=== PATIENT | female | born 1940 | race Caucasian/White ===

== ENCOUNTER → 2016-04-26 | Outpatient (CLI) | payer MEDICARE ==
--- NOTE | 2016-04-26 14:09 | MR ---
EXAMINATION TYPE: MR angio head wo con DATE OF EXAM: 04/26/2016 10:01 AM COMPARISON: NONE HISTORY: TIA TECHNIQUE: Time of flight images focusing on the [place] of [place] were performed without contrast. FINDINGS: Vertebrobasilar system is patent. Vertebral arteries are codominant. Internal carotid arter ies are patent. There is no evident aneurysm. No vascular malformation. No significant vasculitic kvng nge. No filling defect to suggest embolism. IMPRESSION: Unremarkable MRA brain.
== END | disposition home or self-care (01) ==
LOC: RADMRIMAIN 09:35
PROVIDERS: ATTEND Family Medicine
DX: G45.9 Transient cerebral ischemic attack, unspecified (principal)
CPT/HCPCS: 70544

== ENCOUNTER → 2016-11-01 | Outpatient (CLI) | payer MEDICARE ==
--- NOTE | 2016-11-05 08:34 | ECHOF ---
Referral Reason:Chest Pain R07.9, Shortness of Breath R06.02 MEASUREMENTS -------- HEIGHT: 172.7 cm WEIGHT: 74.8 kg BP: 130/73 IVSd: 1.0 cm (0.6 - 1.1) LVIDd: 3.5 cm (3.9 - 5.3) LVPWd: 1.0 cm (0.6 - 1.1) IVSs: 1.5 cm LVIDs: 2.1 cm LVPWs: 1.3 cm LAESV Index (A-L): 14.35 ml/m Ao Diam: 3.1 cm (2.0 - 3.7) AV Cusp: 1.6 cm (1.5 - 2.6) LA Diam: 3.9 cm (2.7 - 3.8) MV EXCURSION: 21.171 mm (> 18.000) MV EF SLOPE: 39 mm/s (70 - 150) EPSS: 1.7 cm MV E Narendra: 0.57 m/s MV DecT: 285 ms MV A Narendra: 0.90 m/s MV E/A Ratio: 0.63 RAP: 5.00 mmHg RVSP: 8.15 mmHg FINDINGS -------- Sinus rhythm. This was a technically adequate study. The left ventricular size is normal. Overall left ventricular systolic function is normal with, an EF between 55 - 60 %. The right ventricle is normal in size and function. Normal LA size by volume 22+/-6 ml/m2. The right atrium is normal in size. Aortic valve is trileaflet and is mildly thickened. There is no evidence of aortic regurgitation. The mitral valve leaflets are mildly thickened. There is trace mitral regurgitation. Trace tricuspid regurgitation present. There is no evidence of pulmonary hypertension. The right ventricular systolic pressure, as measured by Doppler, is 8.15mmHg. There is no pulmonic regurgitation present. The aortic root size is normal. Normal inferior vena cava with normal inspiratory collapse consistent with estimated right atrial pressure of 5 mmHg. There is no pericardial effusion. CONCLUSIONS -------- 1. Sinus rhythm. 2. There is no pulmonic regurgitation present. 3. The aortic root size is normal. 4. There is no pericardial effusion. 5. This was a technically adequate study. 6. Overall left ventricular systolic function is normal with, an EF between 55 - 60 %. 7. Normal LA size by volume 22+/-6 ml/m2. 8. Aortic valve is trileaflet and is mildly thickened. 9. The mitral valve leaflets are mildly thickened. 10. There is trace mitral regurgitation. 11. Trace tricuspid regurgitation present. 12. There is no evidence of pulmonary hypertension. INSPECTOR TOOL: Shmuel Larios RDCS
== END ==
LOC: RADECHMAIN 16:38
PROVIDERS: ATTEND Family Medicine
DX: I08.3 Combined rheumatic disorders of mitral, aortic and tricuspid valves (principal)
CPT/HCPCS: 93306

== ENCOUNTER → 2016-11-09 | Outpatient (CLI) | payer MEDICARE ==
--- NOTE | 2016-11-09 10:20 | MM ---
Reason for exam: history of breast cancer, mastectomy. Last mammogram was performed 1 year ago. History: Patient is postmenopausal and has history of breast cancer at age 58. Family history of breast cancer in 2 maternal cousins at age 40 and breast cancer in sister at age 59. Benign MG stereo VAD BX addl RT of the right breast, November 11, 2013. Benign MG stereo VAD BX RT of the right breast, November 11, 2013. Malignant mastectomy of the left breast, December 28, 1998. Malignant excisional biopsy of the left breast, October 22, 1998. Benign stereotactic core biopsy of the left breast, October 09, 1998. Core biopsy of the right breast. Excisional biopsy of the right breast. Took hormonal contraceptives for 5 years beginning at age 20. Took estrogen for 7 years beginning at age 51. Took antineoplastic for 5 years beginning at age 58. Physical Findings: Nurse did not find any significant physical abnormalities on exam. MG 3D Diag Mammo W/Cad RT CC and MLO view(s) were taken of the right breast. Prior study comparison: November 05, 2015, right breast MG 3d diag mammo w/cad RT. November 03, 2014, right breast MG diagnostic mammo RT w CAD. April 28, 2014, right breast MG diagnostic mammo RT w CAD. October 23, 2013, right breast MG diagnostic mammo RT w CAD. There are scattered fibroglandular densities. Previous mammotome biopsy in the right breast x 2. No significant new findings when compared with previous films. These results were verbally communicated with the patient and result sheet given to the patient on 11/09/16. ASSESSMENT: Negative, BI-RAD 1 RECOMMENDATION: Follow-up diagnostic mammogram of the right breast in 1 year.
== END | disposition home or self-care (01) ==
LOC: RADMAMWWP 09:31
PROVIDERS: ATTEND Family Medicine
DX: Z08 Encounter for follow-up examination after completed treatment for malignant neoplasm (principal); Z90.12 Acquired absence of left breast and nipple; Z85.3 Personal history of malignant neoplasm of breast
CPT/HCPCS: G0206; G0279

== ENCOUNTER → 2017-11-13 | Outpatient (CLI) | payer MEDICARE ==
--- NOTE | 2017-11-14 07:44 | MM ---
Reason for exam: additional evaluation requested from prior study. Last mammogram was performed 1 year ago. History: Patient is postmenopausal and has history of breast cancer at age 58. Family history of breast cancer in 2 maternal cousins at age 40 and breast cancer in sister at age 59. Benign MG stereo VAD BX addl RT of the right breast, November 11, 2013. Benign MG stereo VAD BX RT of the right breast, November 11, 2013. Malignant mastectomy of the left breast, December 28, 1998. Malignant excisional biopsy of the left breast, October 22, 1998. Benign stereotactic core biopsy of the left breast, October 09, 1998. Core biopsy of the right breast. Excisional biopsy of the right breast. Took hormonal contraceptives for 5 years beginning at age 20. Took estrogen for 7 years beginning at age 51. Took antineoplastic for 5 years beginning at age 58. Physical Findings: Nurse did not find any significant physical abnormalities on exam. MG 3D Diag Mammo W/Cad RT CC and MLO view(s) were taken of the right breast. Prior study comparison: November 09, 2016, right breast MG 3d diag mammo w/cad RT. November 05, 2015, right breast MG 3d diag mammo w/cad RT. November 03, 2014, right breast MG diagnostic mammo RT w CAD. The breast tissue is heterogeneously dense. This may lower the sensitivity of mammography. Finding: There are benign appearing calcification in the right breast. Right surgical clips and post biopsy changes noted. These results were verbally communicated with the patient and result sheet given to the patient on 11/13/17. ASSESSMENT: Benign, BI-RAD 2 RECOMMENDATION: Routine screening mammogram of the right breast in 1 year.
== END | disposition home or self-care (01) ==
LOC: RADMAMWWP 14:40
PROVIDERS: ATTEND Family Medicine
DX: Z08 Encounter for follow-up examination after completed treatment for malignant neoplasm (principal); Z85.3 Personal history of malignant neoplasm of breast
CPT/HCPCS: 77065; G0279; 77061

== ENCOUNTER → 2018-12-12 | Outpatient (CLI) | payer MEDICARE ==
--- NOTE | 2018-12-12 12:01 | MM ---
Reason for exam: additional evaluation requested from prior study. Last mammogram was performed 1 year and 1 month ago. History: Patient is postmenopausal and has history of breast cancer at age 58. Family history of breast cancer in sister at age 74, breast cancer in sister at age 59, and breast cancer in 2 cousins at age 40. Benign MG stereo VAD BX addl RT of the right breast, November 11, 2013. Benign MG stereo VAD BX RT of the right breast, November 11, 2013. Malignant mastectomy of the left breast, December 28, 1998. Malignant excisional biopsy of the left breast, October 22, 1998. Benign stereotactic core biopsy of the left breast, October 09, 1998. Core biopsy of the right breast. Excisional biopsy of the right breast. Took hormonal contraceptives for 10 years beginning at age 20. Took estrogen for 7 years beginning at age 51. Took antineoplastic for 5 years beginning at age 58. Physical Findings: Nurse did not find any significant physical abnormalities on exam. MG 3D Diag Mammo W/Cad RT CC and MLO view(s) were taken of the right breast. Prior study comparison: November 13, 2017, right breast MG 3d diag mammo w/cad RT. November 09, 2016, right breast MG 3d diag mammo w/cad RT. The breast tissue is heterogeneously dense. This may lower the sensitivity of mammography. Benign appearing calcifications in the right breast. Post surgical change on the right. These results were verbally communicated with the patient and result sheet given to the patient on 12/12/18. ASSESSMENT: Benign, BI-RAD 2 RECOMMENDATION: Follow-up diagnostic mammogram of the right breast in 1 year.
== END | disposition home or self-care (01) ==
LOC: RADMAMWWP 09:31
PROVIDERS: ATTEND Family Medicine
DX: Z08 Encounter for follow-up examination after completed treatment for malignant neoplasm (principal); Z85.3 Personal history of malignant neoplasm of breast; Z90.12 Acquired absence of left breast and nipple
CPT/HCPCS: 77065; G0279; 77061

== ENCOUNTER → 2019-12-02 | Outpatient (CLI) | payer MEDICARE ==
--- NOTE | 2019-12-02 12:33 | MR ---
EXAMINATION TYPE: MR brain wo/w con DATE OF EXAM: 12/02/2019 COMPARISON: None HISTORY: Syncope, dizziness, cerebral infarction TECHNIQUE: Multiplanar, multisequence images of the brain and brainstem is performed without and with IV contras t, utilizing 7.5 mL intravenous Gadavist . FINDINGS: Diffusion weighted images demonstrate no evidence of a recent infarct or other diffusion ab normality. There is no extra-axial fluid collection. There is extensive confluent and scattered hype rintensity on inversion recovery and T2-weighted images within the subcortical, juxtacortical, perive ntricular and pericallosal white matter. Largest lesion towards the centrum semiovale ovale, axial im age #23 measures approximately 2.5 in AP dimension x 1 cm x 2 cm in cephalad to caudal dimension. The ventricular system and cisternal spaces are normal in size and appearance. The brain volume is age appropriate. Midline structures demonstrate normal morphology. The craniocervical junction appears within normal limits. Post contrast images demonstrate no abnormal enhancement. The dural venous sinuses appear pa tent. The visualized sinuses are clear and the globes are intact. Inflammatory change present in the mastoid air cells on the left. IMPRESSION: Nonspecific white matter demyelination could be related to chronic small vessel ischemic change. Correlate for possible mastoiditis.
--- NOTE | 2019-12-02 12:48 | MR ---
EXAMINATION TYPE: MR angio head wo con DATE OF EXAM: 12/02/2019 COMPARISON: MR brain same date, prior MRI 04/26/2016 HISTORY: Syncope, dizziness, cerebral infarction TECHNIQUE: Time of flight images focusing on the [place] of [place] were performed without contrast. 3 Dimensional reconstructions performed on an alternate workstation. FINDINGS: Exam is stable. Anterior posterior circulation are patent. No evident aneurysm, dissection, or embolus. No vascular malformation. IMPRESSION: Stable exam, no significant abnormality is evident
== END | disposition home or self-care (01) ==
LOC: RADMRIMAIN 08:06
PROVIDERS: ATTEND Family Medicine
DX: G37.8 Other specified demyelinating diseases of central nervous system (principal)
CPT/HCPCS: 70544; 70553; A9585

== ENCOUNTER → 2020-10-01 | Outpatient (CLI) | payer MEDICARE ==
--- NOTE | 2020-11-03 13:52 | EM ---
EVENT MONITOR Patient was monitored between the first and October 2020. The rhythm strip revealed a sinus mechanism with borderline first-degree AV block. No atrial fibrillation was noted. Short burst of paroxysmal atrial tachycardia was noted. No ventricular ectopic activity was noted. ANTHONY / KASHIF: [id number] /
== END | disposition home or self-care (01) ==
LOC: RADECHMAIN 12:13
PROVIDERS: ATTEND Family Medicine
DX: I44.0 Atrioventricular block, first degree (principal); I47.1 Supraventricular tachycardia
CPT/HCPCS: 93270

== ENCOUNTER → 2023-01-11 | Outpatient (CLI) | payer MEDICARE ==
--- NOTE | 2023-01-23 14:31 | P.HOLTER ---
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
--- NOTE | 2023-01-25 09:05 | HM ---
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
== END | disposition home or self-care (01) ==
LOC: RADECHMAIN 08:02
PROVIDERS: ATTEND Family Medicine
DX: I10 Essential (primary) hypertension (principal); I49.8 Other specified cardiac arrhythmias
CPT/HCPCS: 93225; 93226

== ENCOUNTER 2023-09-28 18:49 | Emergency (ER) | payer MEDICARE ==
[2023-09-28 19:19] VITALS: TEMP 98.3
--- NOTE | 2023-09-28 20:07 | ED ---
Head Injury HPI - General Chief complaint: Head Injury Stated complaint: fall-on thinners Time Seen by Provider: 09/28/23 20:06 Source: patient, family Mode of arrival: wheelchair Limitations: no limitations - History of Present Illness Initial comments: 83-year-old female presenting with chief complaint of head injury. Patient fell from standing at home today and hit the right congregation on the bottom wooden portion of her couch. She had no loss of consciousness. She is on warfarin. She has some bruising to the right congregation. She does have some soreness to the right ankle and knee but no extensive pain. She did recently have surgery to her lower back. No increased pain. No abdominal pain, chest pain, difficulty breathing. - Related Data Home Medications Medication Instructions Recorded Confirmed Aspirin 81 mg PO DAILY 01/27/14 01/27/14 Famotidine [Pepcid] 20 mg PO BID 01/27/14 01/27/14 Levothyroxine Sodium [Synthroid] 25 mcg PO DAILY 01/27/14 01/27/14 Montelukast [Singulair] 10 mg PO HS 01/27/14 01/27/14 Simvastatin [Zocor] 20 mg PO HS 01/27/14 01/27/14 Warfarin Sodium [Coumadin] 6 mg PO DAILY 01/27/14 01/27/14 lisinopriL [Zestril] 2.5 mg PO DAILY 01/27/14 01/27/14 Allergies/Adverse reactions: Allergies Allergy/AdvReac Type Severity Reaction Status Date / Time No Known Allergies Allergy Verified 01/27/14 20:13 Review of Systems ROS Statement: Those systems with pertinent positive or pertinent negative responses have been documented in the HPI. ROS Other: All systems not noted in ROS Statement are negative. Past Medical History Past Medical History: CVA/TIA, Hypertension, Thyroid Disorder History of Any Multi-Drug Resistant Organisms: None Reported Past Surgical History: Breast Surgery, Orthopedic Surgery Past Psychological History: No Psychological Hx Reported Past Alcohol Use History: None Reported Past Drug Use History: None Reported General Exam - General Exam Comments Initial Comments: Visual Physical Exam Vital signs reviewed General: Well-appearing, nontoxic, no acute distress. Head: Normocephalic, atraumatic Eyes: PERRLA, EOMI ENT: Airway patent Chest: Nonlabored breathing Skin: No visual rash, normal skin tone Neuro: Alert and oriented 3 Musculoskeletal: No gross abnormalities Limitations: no limitations General appearance: alert, in no apparent distress Head exam: Present: normocephalic Expanded Head exam: Present: hematoma Eye exam: Present: normal appearance, PERRL, EOMI Neck exam: Present: normal inspection. Absent: meningismus Respiratory exam: Present: normal lung sounds bilaterally. Absent: respiratory distress, wheezes, rales, rhonchi, stridor Cardiovascular Exam: Present: regular rate, normal rhythm, normal heart sounds. Absent: systolic murmur, diastolic murmur, rubs, gallop, clicks GI/Abdominal exam: Present: soft. Absent: distended, tenderness, guarding, rebound, rigid Extremities exam: Present: normal inspection Back exam: Present: normal inspection (Incision is inspected, no evidence of wound dehiscence, kelly intact, appears to be healing well) Neurological exam: Present: alert, oriented X3 Expanded Patient oriented to: Present: person, place, time Speech: Present: fluid speech Eye Response: (4) open spontaneously Motor Response: (6) obeys commands Verbal Response: (5) oriented [place] Total: 15 Psychiatric exam: Present: normal affect, normal mood Skin exam: Present: warm, dry Course Vital Signs 09/28/23 09/28/23 19:16 22:05 Temperature 98.3 F Pulse Rate 112 H 98 Respiratory 20 18 Rate Blood Pressure 132/78 146/84 O2 Sat by Pulse 95 97 Oximetry Medical Decision Making - Medical Decision Making Was pt. sent in by a medical professional or institution (, PA, DEPLOYMENT MANAGER, urgent care, hospital, or detention...) When possible be specific @ -No Did you speak to anyone other than the patient for history (EMS, parent, family, police, friend...)? What history was obtained from this source @ -No Did you review nursing and triage notes (agree or disagree)? Why? @ -I reviewed and agree with nursing and triage notes Were old charts reviewed (outside hosp., previous admission, EMS record, old EKG, old radiological studies, urgent care reports/EKG's, detention records)? Report findings @ -No old charts were reviewed Differential Diagnosis (chest pain, altered mental status, abdominal pain women, abdominal pain men, vaginal bleeding, weakness, fever, dyspnea, syncope, headache, dizziness, GI bleed, back pain, seizure, CVA, palpatations, mental health, musculoskeletal)? @ -Differential includes uncomplicated head injury, concussion, intracranial hemorrhage, fracture, this is not an all-inclusive list EKG interpreted by me (3pts min.). @ -As above X-rays interpreted by me (1pt min.). @ -None done CT interpreted by me (1pt min.). @ -CT shows no evidence of any acute intracranial abnormality. Atrophy and chronic microvascular ischemic white matter changes. Right temporal scalp soft tissue swelling and hematoma. No evidence of calvarial fracture. No evidence of acute cervical spine fracture or traumatic malalignment. Mild/moderate cervical spondylosis. U/S interpreted by me (1pt. min.). @ -None done What testing was considered but not performed or refused? (CT, X-rays, U/S, labs)? Why? @ -X-rays of the knee and ankle were considered, however the patient states that she is only having minimal soreness and does not believe that she needs any x-ray. What meds were considered but not given or refused? Why? @ -None Did you discuss the management of the patient with other professionals (prof jun i.e. , PA, DEPLOYMENT MANAGER, lab, RT, psych nurse, social work case manager, real estate legal assistant, teacher, national service officer, case managers)? Give summary @ -No Was smoking cessation discussed for >3mins.? @ -No Was critical care preformed (if so, how long)? @ -No Were there social determinants of health that impacted care today? How? (Homelessness, low income, unemployed, alcoholism, drug addiction, transportation, low edu. Level, literacy, decrease access to med. care, [facility], rehab)? @ -No Was there de-escalation of care discussed even if they declined (Discuss DNR or withdrawal of care, Hospice)? DNR status @ -No What co-morbidities impacted this encounter? (DM, HTN, Smoking, COPD, CAD, Cancer, CVA, ARF, Chemo, Hep., AIDS, mental health diagnosis, sleep apnea, morbid obesity)? @ -None Was patient admitted / discharged? Hospital course, mention meds given and route, prescriptions, significant lab abnormalities, going to OR and other pertinent info. @ -83-year-old female presenting for evaluation after a fall from standing. She did hit her head. No loss of consciousness. She takes warfarin. CT is negative for acute intracranial process or cervical spine fracture. Her incision to the lower back from recent surgery appears intact with no issue seen. Patient is feeling well and would like to be discharged home. Follow-up with PCP. Report back to ER with any new or worsening symptoms. Discussed return parameters and answered all questions. Patient conveyed verbal understanding and agreed to the plan. I discussed this case in detail with my attending Dr. Gruber Undiagnosed new problem with uncertain prognosis? @ -No Drug Therapy requiring intensive monitoring for toxicity (Heparin, Nitro, Insulin, Cardizem)? @ -No Were any procedures done? @ -No Diagnosis/symptom? @ -Head injury, fall Acute, or Chronic, or Acute on Chronic? @ -Acute Uncomplicated (without systemic symptoms) or Complicated (systemic symptoms)? @ -Uncomplicated Side effects of treatment? @ -No Exacerbation, Progression, or Severe Exacerbation? @ -No Poses a threat to life or bodily function? How? (Chest pain, [place], [place], pneumonia, PE, COPD, DKA, ARF, appy, cholecystitis, CVA, Diverticulitis, Homicidal, Laxmi cidal, threat to staff... and all critical care pts) @ -Low likelihood Disposition Clinical Impression: Closed head injury, Hematoma of scalp Disposition: HOME SELF-CARE Condition: Good Instructions (If sedation given, give patient instructions): Head Injury (ED) Additional Instructions: Follow-up with your PCP. Report back to ER with any new or worsening symptoms. Is patient prescribed a controlled substance at d/c from ED?: No Referrals: Jay De La Cruz MD [Primary Care Provider] - 1-2 days Time of Disposition: 21:51
--- NOTE | 2023-09-28 21:15 | CT ---
EXAMINATION TYPE: CT brain cspine wo con CT DLP: 1315.5 mGycm, Automated exposure control for dose reduction was used. DATE OF EXAM: 09/28/2023 7:36 PM COMPARISON: None. CLINICAL INDICATION:Female, 83 years old with history of FALL FROM STANDING HEMATOMA RIGHT TEMPORAL; Back surgery x 6 days ago. Fall on thinners, hematoma to right temporal bone TECHNIQUE: Brain: Multiple axial CT images of the brain were obtained without IV contrast. Cspine: Axial CT images from the skull base to the inferior aspect of T2 we obtained without intraven ous contrast. Coronal and sagittal reformatted images were also reviewed. FINDINGS: Brain: Extra-axial spaces: No abnormal extra-axial fluid collections. Ventricular system: Appear dilated in proportion to the degree of cerebral atrophy. Cerebral parenchyma: No increased attenuation to suggest acute intraparenchymal hemorrhage. The gra y-white matter interface appears maintained. Moderate generalized brain atrophy. Scattered hypoatte nuating areas are seen within the cerebral white matter, nonspecific but most often seen with chronic microvascular ischemic changes; moderate in degree. Brainstem: Limited assessment by streak artifacts with no clearly acute abnormality. Cerebellum: No acute abnormality. Mass effect: No evidence of mass effect or midline shift. Intracranial vasculature: Atherosclerotic calcifications of the larger arteries near the skull base. Soft tissues: Right temporal scalp soft tissue swelling and hematoma. Visualized orbits: Orbital contents appear grossly intact. Calvarium/osseous structures: No evidence of calvarial fracture. Paranasal sinuses and mastoid air cells: Clear. MRI is more sensitive for detecting acute processes such as infarct, and may be considered if clinica lly warranted. Cervical spine: Fracture: None seen. Osseous structures, spinal canal/neural foramina: Craniocervical junction is intact. There is mild to moderate multilevel degenerative disc changes with mild multilevel canal and foraminal stenoses. Thi s is probably most significant at the C4-C5 level where there is moderate to severe right neural fora jerri stenosis. Vertebral alignment: No traumatic malalignment. Straightening mild reversal of the normal cervical lo rdosis, can be due to degenerative changes, pain, positioning, muscular spasm. Neck soft tissues: No acute finding.. Thyroid appears somewhat small, otherwise unremarkable. Other: Lung apices show no acute infiltrate or pneumothorax. Chronic senescent changes. IMPRESSION: CT head: 1. No CT evidence of an acute intracranial abnormality. 2. Atrophy and chronic microvascular ischemic white matter changes. 3. Right temporal scalp soft tissue swelling and hematoma. No evidence of calvarial fracture. CT cervical spine: 1. No evidence of acute cervical spine fracture or traumatic malalignment. 2. Mild/moderate cervical spondylosis.
[2023-09-28] MEDS: ACETAMINOPHEN TAB 500 MG TAB PO STA (22:02)
[2023-09-28 22:06] VITALS: BP 146/84; PULSE 98; RESP 18
== END 2023-09-28 22:13 | disposition home or self-care (01) ==
LOC: EC 18:49
DX: S00.03XA Contusion of scalp, initial encounter (principal); W22.03XA Walked into furniture, initial encounter
CPT/HCPCS: 70450; 72125; 99283

== ENCOUNTER 2023-10-27 22:39 | Inpatient (IN) | payer MEDICARE ==
--- NOTE | 2023-10-27 23:41 | ED ---
Nausea/Vomiting/Diarrhea HPI - General Chief complaint: Nausea/Vomiting/Diarrhea Stated complaint: Difficulty breathing Time Seen by Provider: 10/27/23 23:18 Source: patient Mode of arrival: wheelchair Limitations: no limitations - History of Present Illness Initial comments: This patient is an 83-year-old woman who presents with complaint that she is h aving epigastric abdominal pain, nausea and vomiting, that have been getting progressively worse over a little over 1 week period. Patient had a back surgery and had been on a course of steroids that she believes irritated her stomach. The patient states that she has burning and stabbing pain. It is worse when she tries eat something and she will frequently vomit after she eats. She does tolerate some fluids. She has not noted hematemesis or coffee-ground emesis. MD complaint: nausea, vomiting, abdominal pain Onset/Timin -: week(s) Description of Vomiting: food contents Associated Abdominal Pain: Yes Location: epigastric Radiation: none Severity: severe Quality: cramping, stabbing Consistency: constant Improves with: none Worsens with: eating Context: recent surgery/procedure Associated Symptoms: denies other symptoms - Related Data Home Medications Medication Instructions Recorded Confirmed Aspirin 81 mg PO DAILY 01/27/14 10/28/23 Levothyroxine Sodium [Synthroid] 25 mcg PO DAILY 01/27/14 10/28/23 Montelukast [Singulair] 10 mg PO HS 01/27/14 10/28/23 Atorvastatin [Lipitor] 40 mg PO HS 10/28/23 10/28/23 Losartan Potassium 100 mg PO DAILY 10/28/23 10/28/23 Warfarin Sodium 4 mg PO W/SUPPER 10/28/23 10/28/23 Previous Rx's Medication Instructions Recorded Acetaminophen Tab [Tylenol] 650 mg PO Q6HR PRN tab 10/30/23 Lactulose [Cephulac] 20 gm PO BID PRN #240 ml 10/30/23 Mag Hydrox/Al Hydrox/Simeth 20 ml PO BID #240 ml 10/30/23 [Maalox] Metoprolol Succinate (ER) [Toprol 25 mg PO DAILY #30 tab 10/30/23 XL] Pantoprazole [Protonix] 40 mg PO DAILY #30 tab 10/30/23 Promethazine [Phenergan] 12.5 mg PO Q6HR PRN #20 tab 10/30/23 Allergies Allergy/AdvReac Type Severity Reaction Status Date / Time No Known Allergies Allergy Verified 10/28/23 13:52 Review of Systems ROS Statement: Those systems with pertinent positive or pertinent negative responses have been documented in the HPI. ROS Other: All systems not noted in ROS Statement are negative. Constitutional: Denies: fever, chills Respiratory: Denies: cough, dyspnea Cardiovascular: Denies: chest pain, palpitations, edema Gastrointestinal: Reports: abdominal pain, nausea, vomiting. Denies: diarrhea, hematemesis, melena, hematochezia Genitourinary: Denies: dysuria, hematuria Musculoskeletal: Denies: back pain Skin: Denies: rash Neurological: Denies: headache, weakness, numbness Past Medical History Past Medical History: CVA/TIA, Hypertension, Thyroid Disorder History of Any Multi-Drug Resistant Organisms: None Reported Past Surgical History: Breast Surgery, Orthopedic Surgery Past Psychological History: No Psychological Hx Reported Smoking Status: Never smoker Past Alcohol Use History: None Reported Past Drug Use History: None Reported General Exam Limitations: no limitations General appearance: alert, in no apparent distress Head exam: Present: atraumatic, normocephalic Eye exam: Present: normal appearance. Absent: scleral icterus, conjunctival injection Neck exam: Present: normal inspection Respiratory exam: Present: rales (Bilateral bases). Absent: respiratory distress, wheezes, rhonchi, stridor, accessory muscle use Cardiovascular Exam: Present: regular rate, normal rhythm, normal heart sounds. Absent: systolic murmur, diastolic murmur, rubs, gallop GI/Abdominal exam: Present: soft. Absent: distended, tenderness, guarding, rebound, rigid, mass Extremities exam: Present: normal inspection, normal capillary refill. Absent: pedal edema, calf tenderness Back exam: Present: normal inspection. Absent: CVA tenderness (R), CVA tenderness (L) Neurological exam: Present: alert Skin exam: Present: warm, dry, intact, normal color. Absent: rash Course Vital Signs 10/27/23 10/28/23 10/28/23 23:02 00:20 03:06 Temperature 97.4 F L Pulse Rate 86 71 78 Respiratory 20 18 17 Rate Blood Pressure 151/84 161/95 148/82 O2 Sat by Pulse 97 98 97 Oximetry Medical Decision Making - Medical Decision Making Was pt. sent in by a medical professional or institution (ELLIOTT Aguirre, [employer], urgent care, hospital, or fdc...) When possible be specific @ -[No] Did you speak to anyone other than the patient for history (EMS, parent, family, police, friend...)? What history was obtained from this source @ -[No] Did you review nursing and triage notes (agree or disagree)? Why? @ -[I reviewed and agree with nursing and triage notes] Were old charts reviewed (outside hosp., previous admission, EMS record, old EKG, old radiological studies, urgent care reports/EKG's, fdc records)? Report findings @ -[No old charts were reviewed] Differential Diagnosis (chest pain, altered mental status, abdominal pain women, abdominal pain men, vaginal bleeding, weakness, fever, dyspnea, syncope, headache, dizziness, GI bleed, back pain, seizure, CVA, palpatations, mental health, musculoskeletal)? @ -[Differential Abdominal Pain Women: Appendicitis, Cholecystitis, diverticulosis, ischemic bowel, pancreatitis, h epatitis, UTI, gastroenteritis, AAA, incarcerated hernia, bowel obstruction, constipation, inflammatory bowel, hepatitis, peptic ulcer disease, splenic infarction, perforated viscus, vulvitis, ovarian torsion, PID, kidney stone, placenta abruption, this is not meant to be an all-inclusive list EKG interpreted by me (3pts min.). @ -[I interpreted as above] X-rays interpreted by me (1pt min.). @ -[None done] CT interpreted by me (1pt min.). @ -[None done] U/S interpreted by me (1pt. min.). @ -[None done] What testing was considered but not performed or refused? (CT, X-rays, U/S, labs)? Why? @ -[None] What meds were considered but not given or refused? Why? @ -[None] Did you discuss the management of the patient with other professionals (professionals i.e. ELLIOTT Aguirre, [employer], lab, RT, psych nurse, foster care social worker, furniture detailer, teacher, hospital chief executive officer, case finisher)? Give summary @ -[ case discussed with admitting physician and treatment recommendations are incorporated Was smoking cessation discussed for >3mins.? @ -[No] Was critical care preformed (if so, how long)? @ -[No] Were there social determinants of health that impacted care today? How? (Homelessness, low income, unemployed, alcoholism, drug addiction, transportation, low edu. Level, literacy, decrease access to med. care, [facility], rehab)? @ -[No] Was there de-escalation of care discussed even if they declined (Discuss DNR or withdrawal of care, Hospice)? DNR status @ -[No] What co-morbidities impacted this encounter? (DM, HTN, Smoking, COPD, CAD, Cancer, CVA, ARF, Chemo, Hep., AIDS, mental health diagnosis, sleep apnea, m orbid obesity)? @ -[None] Was patient admitted / discharged? Hospital course, mention meds given and route, prescriptions, significant lab abnormalities, going to OR and other pertinent info. @ -[This patient is an 83-year-old woman here with intractable abdominal pain, she did not have adequate symptom relief here in the emergency department and patient will be admitted to have surgery consultation. No evidence of acute surgical condition at time of admission. Undiagnosed new problem with uncertain prognosis? @ -[No] Drug Therapy requiring intensive monitoring for toxicity (Heparin, Nitro, Insulin, Cardizem)? @ -[No] Were any procedures done? @ -[No] Diagnosis/symptom? @ -[Acute abdominal pain, intractable Acute hypokalemia Acute, or Chronic, or Acute on Chronic? @ -[Acute Uncomplicated (without systemic symptoms) or Complicated (systemic symptoms)? @ -[Uncomplicated Side effects of treatment? @ -[No] Exacerbation, Progression, or Severe Exacerbation? @ -[No] Poses a threat to life or bodily function? How? (Chest pain, [place], [place], pneumonia, PE, COPD, DKA, ARF, appy, cholecystitis, CVA, Diverticulitis, Homicidal, Suicidal, threat to staff... and all critical care pts) @ -[No] - Lab Data Result diagrams: 10/29/23 02:53 10/29/23 05:52 Lab Results 10/27/23 10/27/23 10/27/23 Range/Units 23:37 23:37 23:37 WBC 6.5 (3.8-10.6) k/uL RBC 3.90 (3.80-5.40) m/uL Hgb 12.0 (11.4-16.0) gm/dL Hct 35.1 (34.0-46.0) % MCV 89.8 (80.0-100.0) fL MCH 30.7 (25.0-35.0) pg MCHC 34.2 (31.0-37.0) g/dL RDW 14.7 (11.5-15.5) % Plt Count 176 (150-450) k/uL MPV 8.8 Neutrophils % 59 % Lymphocytes % 29 % Monocytes % 8 % Eosinophils % 2 % Basophils % 0 % Neutrophils # 3.8 (1.3-7.7) k/uL Lymphocytes # 1.9 (1.0-4.8) k/uL Monocytes # 0.5 (0-1.0) k/uL Eosinophils # 0.2 (0-0.7) k/uL Basophils # 0.0 (0-0.2) k/uL Sodium 136 L (137-145) mmol/L Potassium 3.1 L (3.5-5.1) mmol/L Chloride 102 (98-107) mmol/L Carbon Dioxide 27 (22-30) mmol/L Anion Gap 7 mmol/L BUN 13 (7-17) mg/dL Creatinine 1.10 H (0.52-1.04) mg/dL Est GFR (CKD-EPI)AfAm 54 (>60 ml/min/1.73 sqM) Est GFR (CKD-EPI)NonAf 47 (>60 ml/min/1.73 sqM) Glucose 107 H (74-99) mg/dL Calcium 9.3 (8.4-10.2) mg/dL Total Bilirubin 1.3 (0.2-1.3) mg/dL AST 34 (14-36) U/L ALT 22 (4-34) U/L Alkaline Phosphatase 88 (38-126) U/L Troponin I <0.012 (0.000-0.034) ng/mL Total Protein 6.0 L (6.3-8.2) g/dL Albumin 3.6 (3.5-5.0) g/dL Amylase 44 (30-110) U/L Lipase 121 (23-300) U/L Urine Color Urine Appearance (Clear) Urine pH (5.0-8.0) Ur Specific [place] (1.001-1.035) Urine Protein (Negative) Urine Glucose (UA) (Negative) Urine Ketones (Negative) Urine Blood (Negative) Urine Nitrite (Negative) Urine Bilirubin (Negative) Urine Urobilinogen (<2.0) mg/dL Ur Leukocyte Esterase (Negative) Urine RBC (0-5) /hpf Urine WBC (0-5) /hpf Ur Squamous Epith Cells (0-4) /hpf 10/28/23 Range/Units 01:30 WBC (3.8-10.6) k/uL RBC (3.80-5.40) m/uL Hgb (11.4-16.0) gm/dL Hct (34.0-46.0) % MCV (80.0-100.0) fL MCH (25.0-35.0) pg MCHC (31.0-37.0) g/dL RDW (11.5-15.5) % Plt Count (150-450) k/uL MPV Neutrophils % % Lymphocytes % % Monocytes % % Eosinophils % % Basophils % % Neutrophils # (1.3-7.7) k/uL Lymphocytes # (1.0-4.8) k/uL Monocytes # (0-1.0) k/uL Eosinophils # (0-0.7) k/uL Basophils # (0-0.2) k/uL Sodium (137-145) mmol/L Potassium (3.5-5.1) mmol/L Chloride (98-107) mmol/L Carbon Dioxide (22-30) mmol/L Anion Gap mmol/L BUN (7-17) mg/dL Creatinine (0.52-1.04) mg/dL Est GFR (CKD-EPI)AfAm (>60 ml/min/1.73 sqM) Est GFR (CKD-EPI)NonAf (>60 ml/min/1.73 sqM) Glucose (74-99) mg/dL Calcium (8.4-10.2) mg/dL Total Bilirubin (0.2-1.3) mg/dL AST (14-36) U/L ALT (4-34) U/L Alkaline Phosphatase (38-126) U/L Troponin I (0.000-0.034) ng/mL Total Protein (6.3-8.2) g/dL Albumin (3.5-5.0) g/dL Amylase (30-110) U/L Lipase (23-300) U/L Urine Color Colorless Urine Appearance Clear (Clear) Urine pH 6.0 (5.0-8.0) Ur Specific [place] 1.005 (1.001-1.035) Urine Protein Negative (Negative) Urine Glucose (UA) Negative (Negative) Urine Ketones Negative (Negative) Urine Blood Negative (Negative) Urine Nitrite Negative (Negative) Urine Bilirubin Negative (Negative) Urine Urobilinogen <2.0 (<2.0) mg/dL Ur Leukocyte Esterase Large H (Negative) Urine RBC 1 (0-5) /hpf Urine WBC 9 H (0-5) /hpf Ur Squamous Epith Cells 1 (0-4) /hpf - EKG Data -: EKG Interpreted by Me EKG shows normal: sinus rhythm, axis (Normal), intervals ( normal), QRS complexes (Normal) Rate: normal (71 bpm) Interpretation: nonspecific ST-T wave changes Disposition Clinical Impression: Intractable abdominal pain, Hypokalemia Disposition: ADMITTED IP TO THIS HOSP Condition: Fair Is patient prescribed a controlled substance at d/c from ED?: No
[2023-10-27 23:52] LABS: Basophils % (A) 0 %; Eosinophils # (A) 0.2 k/uL (0-0.7); Eosinophils % (A) 2 %; HCT 35.1 % (34.0-46.0); Lymphocytes # (A) 1.9 k/uL (1.0-4.8); Lymphocytes % (A) 29 %; MCH 30.7 pg (25.0-35.0); MCHC 34.2 g/dL (31.0-37.0); MCV 89.8 fL (80.0-100.0); Mean Platelet Volume 8.8; Monocytes # (A) 0.5 k/uL (0-1.0); Monocytes % (A) 8 %; Neutrophils # (A) 3.8 k/uL (1.3-7.7); Neutrophils % (A) 59 %; Platelet Count 176 k/uL (150-450); RDW 14.7 % (11.5-15.5); WBC 6.5 k/uL (3.8-10.6)
[2023-10-27] MEDS: ONDANSETRON 4 MG/2 ML VIAL IVP STA (23:52)
[2023-10-27] MEDS: SODIUM CHLORIDE 0.9% 500 ML 500 ML IV STA (23:52)
[2023-10-27] MEDS: PANTOPRAZOLE 40 MG/10 ML VIAL IVP STA (23:56)
[2023-10-27] MEDS: MAG HYDROX/AL HYDROX/SIMETH 30 ML, HYOSCYAMINE ELIXIR 10 ML, LIDOCAINE VISCOUS 2% 10 ML PO STA (23:59)
[2023-10-28 00:26] LABS: ALT 22 U/L (4-34); AST 34 U/L (14-36); African American GFR (CKD) 54 (>60 ml/min/1.73 sqM); Albumin 3.6 g/dL (3.5-5.0); Alkaline Phosphatase 88 U/L (38-126); Amylase 44 U/L (30-110); Anion Gap 7 mmol/L; Blood Urea Nitrogen 13 mg/dL (7-17); Calcium 9.3 mg/dL (8.4-10.2); Carbon Dioxide 27 mmol/L (22-30); Chloride 102 mmol/L (98-107); Glucose 107 mg/dL (74-99); Lipase 121 U/L (23-300); Non-African American GFR(CKD) 47 (>60 ml/min/1.73 sqM); Potassium 3.1 mmol/L (3.5-5.1); Sodium 136 mmol/L (137-145); Total Bilirubin 1.3 mg/dL (0.2-1.3)
[2023-10-28] MEDS: METOCLOPRAMIDE 5 MG/ML 2 ML VIAL IVP STA (00:57)
[2023-10-28 01:52] LABS: Appearance,Urine Clear (Clear); Bilirubin,Urine Negative (Negative); Blood,Urine Negative (Negative); Color,Urine Colorless; Glucose,Urine (UA) Negative (Negative); Ketones,Urine Negative (Negative); Leukocyte Esterase,Urine Large (Negative); Nitrite,Urine Negative (Negative); Protein,Urine Negative (Negative); RBC,Urine 1 /hpf (0-5); Specific Gravity,Urine 1.005 (1.001-1.035); Squamous Epithelial Cell,Urine 1 /hpf (0-4); Urobilinogen,Urine <2.0 mg/dL (<2.0); WBC,Urine 9 /hpf (0-5)
[2023-10-28] MEDS ORDERED: NALOXONE 0.4 MG/ML 1 ML VIAL IV PRN (03:27)
[2023-10-28] MEDS ORDERED: ONDANSETRON 4 MG/2 ML VIAL IVP PRN (03:27)
[2023-10-28] MEDS ORDERED: ACETAMINOPHEN TAB 325 MG TAB PO PRN (03:27)
[2023-10-28] MEDS: SODIUM CHLORIDE 0.9% 1,000 ML IV SCH (03:36)
[2023-10-28] MEDS: LEVOTHYROXINE 25 MCG TAB PO SCH (06:10)
[2023-10-28 07:27] LABS: INR 2.4 (<1.2); Prothrombin Time 24.1 sec (10.0-12.5)
[2023-10-28] MEDS: FAMOTIDINE 20 MG TAB PO SCH (08:29)
[2023-10-28] MEDS: PANTOPRAZOLE 40 MG/10 ML VIAL IV SCH ×2 (08:29→21:59)
[2023-10-28] MEDS ORDERED: FAMOTIDINE 20 MG TAB PO SCH (09:00)
[2023-10-28] MEDS ORDERED: Potassium Replacement Protocol 1 EACH MISC MISCELLANE PRN ×2 (11:48→17:59)
[2023-10-28] MEDS ORDERED: Magnesium Replacement Protocol 1 EACH MISC MISCELLANE PRN (11:48)
--- NOTE | 2023-10-28 11:49 | P.HPIM ---
History of Present Illness This is a pleasant 83 years old female with past medical history of multiple medical problems including CVA/TIA about 10 years ago on warfarin, not sure if she has A-fib but she states she has history of rapid heartbeat and she takes beta-chauncey to control it. Also hypothyroidism and hypertension Patient states recently she had surgery in her lower back at [facility] on 09/21 at that time she received steroids till the day of discharge Now she presents because of persistent nausea, epigastric discomfort and burning of 10-day duration, rather than actual pain states that this burning is not relieved or precipitated by other factors and nonradiating It looks like this was preventing her from eating and drinking well for the last 10 days and she comes to the hospital because of this No bowel movement for the last 2 days because she is not eating well Other than that patient denies chest pain or dyspnea. No headache dizziness. No limb weakness or numbness. She works fine. No urinary complaint. She denies smoking alcohol or illicit drugs She takes warfarin for history of stroke 10 years ago but she is not sure if she has A-fib, see above Patient vitals stable and afebrile WBC 6.5 and hemoglobin 12, rest of CBC is unremarkable sodium slightly low 136, potassium 3.1 and creatinine 1.1 with baseline 0.8 Review of Systems Review of systems CONSTITUTIONAL: No fever, no malaise, no fatigue. HEENT: No recent visual problems or hearing problems. Denied any sore throat. CARDIOVASCULAR: No orthopnea, PND, no palpitations, no syncope. PULMONARY: No shortness of breath, no cough, no hemoptysis. GASTROINTESTINAL: No diarrhea, no nausea, no vomiting, no abdominal pain. Normoactive bowel sounds. NEUROLOGICAL: No headaches, no weakness, no numbness. HEMATOLOGICAL: Denies any bleeding or petechiae. GENITOURINARY: Denies any burning micturition, frequency, or urgency. MUSCULOSKELETAL/RHEUMATOLOGICAL: Denies any joint pain, swelling, or any muscle pain. ENDOCRINE: Denies any polyuria or polydipsia. Past Medical History Past Medical History: CVA/TIA, Hypertension, Thyroid Disorder Additional Past Medical History / Comment(s): CVA 10 years ago, x9 TIA's. History of Any Multi-Drug Resistant Organisms: None Reported Past Surgical History: Breast Surgery, Orthopedic Surgery Additional Past Surgical History / Comment(s): mastectomy in , back surgery september 2023 Past Psychological History: No Psychological Hx Reported Smoking Status: Never smoker Past Alcohol Use History: None Reported Past Drug Use History: None Reported Medications and Allergies Home Medications Medication Instructions Recorded Confirmed Type Aspirin 81 mg PO DAILY 01/27/14 01/27/14 History Famotidine [Pepcid] 20 mg PO BID 01/27/14 01/27/14 History Levothyroxine Sodium [Synthroid] 25 mcg PO DAILY 01/27/14 01/27/14 History Montelukast [Singulair] 10 mg PO HS 01/27/14 01/27/14 History Simvastatin [Zocor] 20 mg PO HS 01/27/14 01/27/14 History Warfarin Sodium [Coumadin] 6 mg PO DAILY 01/27/14 01/27/14 History lisinopriL [Zestril] 2.5 mg PO DAILY 01/27/14 01/27/14 History Allergies Allergy/AdvReac Type Severity Reaction Status Date / Time No Known Allergies Allergy Verified 10/27/23 23:01 Physical Exam Vitals: Vital Signs Temp Pulse Pulse Resp BP BP Pulse Ox 10/28/23 07:00 97.9 F 71 15 111/64 95 10/28/23 04:14 97.3 F L 79 18 164/88 95 10/28/23 03:06 78 17 148/82 97 10/28/23 00:20 71 18 161/95 98 10/27/23 23:02 97.4 F L 86 20 151/84 97 Intake and Output 10/27/23 10/28/23 10/28/23 22:59 06:59 14:59 Intake Total 0 Balance 0 Intake: Oral 0 Other: # Voids 0 Weight 77.111 kg GENERAL: The patient is alert and oriented x3, not in any acute distress. Well developed, well nourished. HEENT: Pupils are round and equally reacting to light. EOMI. No scleral icterus. No conjunctival pallor. Normocephalic, atraumatic. No pharyngeal erythema. No thyromegaly. CARDIOVASCULAR: S1 and S2 present. No murmurs, rubs, or gallops. PULMONARY: Chest is clear to auscultation, no wheezing , no crackles. ABDOMEN: Soft, nontender, nondistended, normoactive bowel sounds. No palpable organomegaly. MUSCULOSKELETAL: No joint swelling or deformity. EXTREMITIES: No cyanosis, clubbing, or pedal edema. NEUROLOGICAL: Gross neurological examination did not reveal any focal deficits. SKIN: No rashes. no petechiae. Results CBC & Chem 7: 10/27/23 23:37 10/27/23 23:37 Labs: Abnormal Lab Results - Last 24 Hours (Table) 10/27/23 10/28/23 10/28/23 Range/Units 23:37 01:30 06:58 PT 24.1 H (10.0-12.5) sec INR 2.4 H (<1.2) Sodium 136 L (137-145) mmol/L Potassium 3.1 L (3.5-5.1) mmol/L Creatinine 1.10 H (0.52-1.04) mg/dL Glucose 107 H (74-99) mg/dL Total Protein 6.0 L (6.3-8.2) g/dL Ur Leukocyte Esterase Large H (Negative) Urine WBC 9 H (0-5) /hpf Assessment and Plan Assessment: Epigastric pain and discomfort suspicions for gastritis from recent steroid use Decreased appetite secondary to above, with poor oral intake Dehydration, mild Recent history of back surgery in the lower back, currently scar looks healed and closed. No kelly no open wound History of stroke 10 years ago on warfarin Hypothyroidism Hypertension Hypokalemia, replaced per protocol Plan: Continue with IV Protonix Continue with Pepcid MiraLAX added by surgery team Follow-up KUB General surgery on the case Continue with liquid diet and advance as tolerated per surgery team Labs and medication were reviewed.. Continue same treatment. Continue with symptomatic treatment. Resume home medication. Monitor labs and vitals. DVT and GI prophylaxis. Further recommendations as per clinical course of the patient DVT prophylaxis: On warfarin GI Prophylaxis: Pepcid and Protonix Prognosis is guarded
--- NOTE | 2023-10-28 11:55 | XR ---
KUB. HISTORY: Abdominal pain. COMPARISON: None. TECHNIQUE: 2 supine views of the abdomen were obtained. FINDINGS: The lung bases are clear. The bowel gas pattern is nonspecific and there is no evidence of obstruction. There is minimal stool within the colon. No suspicious abdominal or pelvic calcifications are seen. The osseous structures are intact. IMPRESSION: Nonspecific bowel gas pattern. Mild stool within the colon.
[2023-10-28] MEDS: MAG HYDROX/AL HYDROX/SIMETH 30 ML CUP PO SCH (12:22)
[2023-10-28 14:09] LABS: African American GFR (CKD) 50 (>60 ml/min/1.73 sqM); Anion Gap 3 mmol/L; Blood Urea Nitrogen 10 mg/dL (7-17); Calcium 8.5 mg/dL (8.4-10.2); Carbon Dioxide 28 mmol/L (22-30); Chloride 106 mmol/L (98-107); Glucose 103 mg/dL (74-99); Magnesium 1.8 mg/dL (1.6-2.3); Non-African American GFR(CKD) 43 (>60 ml/min/1.73 sqM); Sodium 137 mmol/L (137-145)
[2023-10-28] MEDS: LOSARTAN 50 MG TAB PO SCH (15:47)
[2023-10-28] MEDS ORDERED: WARFARIN 3 MG TAB PO SCH (18:00)
[2023-10-28] MEDS: POTASSIUM CHLORIDE ER 20 MEQ TAB.ER PO SCH (18:25)
[2023-10-28] MEDS: ATORVASTATIN 40 MG TAB PO SCH (19:58)
[2023-10-28] MEDS: MONTELUKAST 10 MG TAB PO SCH (19:59)
[2023-10-28] MEDS: WARFARIN 2 MG TAB PO SCH (19:59)
--- NOTE | 2023-10-29 01:23 | CT ---
EXAM: CT Abdomen and Pelvis With Intravenous Contrast CLINICAL HISTORY: ITS.REASON CT Reason: abdominal pain TECHNIQUE: Axial computed tomography images of the abdomen and pelvis with intravenous contrast. CTDI is 24.5 mGy and DLP is 944.1 mGy-cm. This CT exam was performed using one or more of the following dose reduction techniques: automated exposure control, adjustment of the mA and/or kV according to patient size, and/or use of iterative reconstruction technique. COMPARISON: No relevant prior studies available. FINDINGS: Lung bases: Atelectasis at the lung bases. ABDOMEN: Liver: Unremarkable. Gallbladder and bile ducts: Unremarkable. Pancreas: Unremarkable. Spleen: Unremarkable. Adrenals: Unremarkable. Kidneys and ureters: Unremarkable. No obstructing stones. No hydronephrosis. Stomach and bowel: Colonic diverticulosis without diverticulitis. PELVIS: Appendix: Normal appendix. Bladder: Unremarkable. Reproductive: Hysterectomy. No adnexal lesion. ABDOMEN and PELVIS: Intraperitoneal space: Unremarkable. No free air. No significant fluid collection. Bones/joints: No acute fracture. Soft tissues: Unremarkable. Vasculature: Ectatic infrarenal abdominal aorta measuring up to 2.9 cm. Mild atherosclerotic calcifications. Lymph nodes: Unremarkable. IMPRESSION: 1. No acute abnormality within the abdomen or pelvis. 2. Colonic diverticulosis without diverticulitis.
[2023-10-29] MEDS ORDERED: Potassium Replacement Protocol 1 EACH MISC MISCELLANE PRN (02:07)
[2023-10-29] MEDS: POTASSIUM CHLORIDE ER 20 MEQ TAB.ER PO SCH ×2 (02:40→20:24)
[2023-10-29] MEDS ORDERED: POTASSIUM BICARBONATE/CIT AC 20 MEQ TABLET.EFF NG-TUBE SCH (03:00)
[2023-10-29 03:25] LABS: Basophils % (A) 1 %; Eosinophils # (A) 0.3 k/uL (0-0.7); Eosinophils % (A) 8 %; HCT 31.5 % (34.0-46.0); HGB 10.2 gm/dL (11.4-16.0); Hypochromasia Slight; Lymphocytes # (A) 1.4 k/uL (1.0-4.8); Lymphocytes % (A) 33 %; MCH 29.9 pg (25.0-35.0); MCHC 32.4 g/dL (31.0-37.0); MCV 92.2 fL (80.0-100.0); Mean Platelet Volume 8.5; Monocytes # (A) 0.4 k/uL (0-1.0); Monocytes % (A) 9 %; Neutrophils % (A) 47 %; Platelet Count 131 k/uL (150-450); RBC 3.42 m/uL (3.80-5.40); RDW 15.1 % (11.5-15.5); WBC 4.3 k/uL (3.8-10.6)
[2023-10-29 03:33] LABS: INR 2.7 (<1.2); Prothrombin Time 26.7 sec (10.0-12.5)
[2023-10-29 03:41] LABS: African American GFR (CKD) 59 (>60 ml/min/1.73 sqM); Anion Gap 3 mmol/L; Blood Urea Nitrogen 8 mg/dL (7-17); Calcium 8.3 mg/dL (8.4-10.2); Carbon Dioxide 26 mmol/L (22-30); Chloride 109 mmol/L (98-107); Glucose 81 mg/dL (74-99); Magnesium 1.8 mg/dL (1.6-2.3); Non-African American GFR(CKD) 51 (>60 ml/min/1.73 sqM); Potassium 3.4 mmol/L (3.5-5.1); Sodium 138 mmol/L (137-145)
--- NOTE | 2023-10-29 17:08 | P.GSCN ---
History of Present Illness Consult date: 10/29/23 History of present illness: CHIEF COMPLAINT: Epigastric abdominal pain HISTORY OF PRESENT ILLNESS: The patient is a 83-year-old female brought in by her children after having severe epigastric abdominal pain for over 3 weeks. Patient reports that she has been unable to eat any foods due to a metallic taste in her mouth. She does take chronic blood thinners for atrial fibrillation and had been on steroids per discussion with her nurse. Patient had attempted liquids however unable to tolerate. She also reports difficulty with swallowing large pills. Her pain is focal of the epigastrium as well. She still has her gallbladder. Diagnostic studies including CT scan were obtained. Patient had been scheduled to have outpatient upper endoscopy however due to s everity of abdominal pain she presents to the hospital. No reports of active blood in stools. Her son is at bedside and gives additional history. PAST MEDICAL HISTORY: See list and reviewed PAST SURGICAL HISTORY: See list and reviewed MEDICATIONS: See list and reviewed ALLERGIES: See list and reviewed SOCIAL HISTORY: See list and reviewed FAMILY HISTORY: See list and reviewed REVIEW OF ORGAN SYSTEMS: CONSTITUTIONAL: No fevers or chills. No recent weight loss. EYES: Denies any trouble with vision. No glasses. HEENT: No difficulties with hearing. No nosebleeds. No difficulty swallowing. RESPIRATORY: Denies pneumonia. Denies any troubles with breathing or dyspnea on exertion. CARDIOVASCULAR: Atrial fibrillation on blood thinners including flecainide. Has hypertensive heart disease. GASTROINTESTINAL: Denies fatty food intolerance. Denies change in bowel habits and gas bloat. GENITOURINARY: Denies any blood in urine or increased urinary frequency. NEUROLOGICAL: History of cerebrovascular accident. MUSCULOSKELETAL: Denies any back pain, stiffness or joint arthritis. SKIN: No current skin cancer. No rash. PSYCHIATRIC: Denies current depression or suicidal thoughts. ENDOCRINE: Has hypothyroidism. Denies any blood sugar glucose intolerance. HEME/LYMPHATIC: Denies any lumps and bumps around the neck. No recent deep venous thrombosis. ALLERGY/IMMUNOLOGY: No immunoglobulin therapy. No immune deficiencies. BREAST: History of mastectomy. PHYSICAL EXAM: VITALS: Reviewed CONSTITUTIONAL: Well developed and in no acute distress. EYES: Conjuctivae without sclera icterus. Extraocular movements grossly intact. HEAD, EARS, NOSE, THROAT: Moist buccal mucosa. Head is atraumatic, normocephalic. Hears conversational speech. No nasal drainage. NECK: Supple. No JV distention. No thyroidomegaly. RESPIRATORY: Non-labored respirations and equal bilateral excursions. No gross wheezes. CARDIOVASCULAR: Palpable 2+ radial pulses. ABDOMEN: Tender epigastrium. No diffuse peritonitis. LYMPH: No neck lymphadenopathy. MUSCULOSKELETAL: No clubbing cyanosis or edema SKIN: Warm and well perfused with good skin turgor. NEUROLOGIC: Cranial nerves II through XII grossly intact. No focal or lateralizing signs. PSYCH: Appropriate affect. Alert and oriented to person, place and time. Displays appropriate insight. CLINCAL LABS: Reviewed. INR elevated 2.7. Potassium low 3.0 now 3.6. Hemoglobin down from 12.0-10.2 IMAGING: Independently reviewed. CT of the abdomen pelvis independently reviewed demonstrates presence of gallbladder. Small diaphragmatic hiatal hernia. Moderate retained stool of the sigmoid rectal junction. Presence of diverticulosis. No bowel obstruction. No free air. This is my independent interpretation. RADIOLOGY: Report reviewed. CT of the abdomen pelvis report demonstrates diverticulosis. ASSESSMENT: 1. Epigastric abdominal pain likely due to severe gastritis 2. Acute blood loss anemia 3. Dysphagia 4. Chronic anticoagulation 5. Chronic atrial fibrillation PLAN: 1. N.p.o. except ice chips described. 2. Recommend hold blood thinners. 3. Findings highly suspicious for severe gastritis with bleeding and recommend upper endoscopy. Biopsies on hold due to recent blood thinner use. 4. Additionally, due to location of pain also recommend ultrasound of the gallbladder for further assessment. ADVANCE DIRECTIVE: CODE STATUS in chart. Thank you for this kind consultation. Past Medical History Past Medical History: CVA/TIA, Hypertension, Thyroid Disorder Additional Past Medical History / Comment(s): CVA 10 years ago, x9 TIA's. History of Any Multi-Drug Resistant Organisms: None Reported Past Surgical History: Breast Surgery, Orthopedic Surgery Additional Past Surgical History / Comment(s): mastectomy in , back surgery september 2023 Past Psychological History: No Psychological Hx Reported Smoking Status: Never smoker Past Alcohol Use History: None Reported Past Drug Use History: None Reported Medications and Allergies Home Medications Medication Instructions Recorded Confirmed Type Aspirin 81 mg PO DAILY 01/27/14 10/28/23 History Levothyroxine Sodium [Synthroid] 25 mcg PO DAILY 01/27/14 10/28/23 History Montelukast [Singulair] 10 mg PO HS 01/27/14 10/28/23 History Atorvastatin [Lipitor] 40 mg PO HS 10/28/23 10/28/23 History Flecainide [Tambocor] 50 mg PO HS 10/28/23 10/28/23 History Losartan Potassium 100 mg PO DAILY 10/28/23 10/28/23 History Metoprolol Succinate (ER) [Toprol 25 mg PO HS 10/28/23 10/28/23 History Xl] Warfarin Sodium 4 mg PO W/SUPPER 10/28/23 10/28/23 History Allergies Allergy/AdvReac Type Severity Reaction Status Date / Time No Known Allergies Allergy Verified 10/28/23 13:52 Surgical - Exam Vital Signs Temp Pulse Resp BP Pulse Ox 97.4 F L 86 20 151/84 97 10/27/23 23:02 10/27/23 23:02 10/27/23 23:02 10/27/23 23:02 10/27/23 23:02 Results - Labs 10/29/23 02:53 10/29/23 05:52 Abnormal Lab Results - Last 24 Hours (Table) 10/29/23 10/29/23 10/29/23 Range/Units 01:11 02:53 02:53 RBC 3.42 L (3.80-5.40) m/uL Hgb 10.2 L (11.4-16.0) gm/dL Hct 31.5 L (34.0-46.0) % Plt Count 131 L (150-450) k/uL PT (10.0-12.5) sec INR (<1.2) Potassium 3.2 L 3.4 L (3.5-5.1) mmol/L Chloride 109 H (98-107) mmol/L Calcium 8.3 L (8.4-10.2) mg/dL 10/29/23 Range/Units 02:53 RBC (3.80-5.40) m/uL Hgb (11.4-16.0) gm/dL Hct (34.0-46.0) % Plt Count (150-450) k/uL PT 26.7 H (10.0-12.5) sec INR 2.7 H (<1.2) Potassium (3.5-5.1) mmol/L Chloride (98-107) mmol/L Calcium (8.4-10.2) mg/dL Diabetes panel 10/29/23 10/29/23 10/29/23 Range/Units 01:11 02:53 05:52 Sodium 138 (137-145) mmol/L Potassium 3.2 L 3.4 L 3.6 (3.5-5.1) mmol/L Chloride 109 H (98-107) mmol/L Carbon Dioxide 26 (22-30) mmol/L BUN 8 (7-17) mg/dL Creatinine 1.02 (0.52-1.04) mg/dL Glucose 81 (74-99) mg/dL Calcium 8.3 L (8.4-10.2) mg/dL Calcium panel 10/29/23 Range/Units 02:53 Calcium 8.3 L (8.4-10.2) mg/dL Pituitary panel 10/29/23 10/29/23 10/29/23 Range/Units 01:11 02:53 05:52 Sodium 138 (137-145) mmol/L Potassium 3.2 L 3.4 L 3.6 (3.5-5.1) mmol/L Chloride 109 H (98-107) mmol/L Carbon Dioxide 26 (22-30) mmol/L BUN 8 (7-17) mg/dL Creatinine 1.02 (0.52-1.04) mg/dL Glucose 81 (74-99) mg/dL Calcium 8.3 L (8.4-10.2) mg/dL Adrenal panel 10/29/23 10/29/23 10/29/23 Range/Units 01:11 02:53 05:52 Sodium 138 (137-145) mmol/L Potassium 3.2 L 3.4 L 3.6 (3.5-5.1) mmol/L Chloride 109 H (98-107) mmol/L Carbon Dioxide 26 (22-30) mmol/L BUN 8 (7-17) mg/dL Creatinine 1.02 (0.52-1.04) mg/dL Glucose 81 (74-99) mg/dL Calcium 8.3 L (8.4-10.2) mg/dL
[2023-10-29] MEDS: PROMETHAZINE 25 MG TAB PO PRN (17:20)
[2023-10-30 06:52] LABS: INR 2.6 (<1.2); Prothrombin Time 25.5 sec (10.0-12.5)
--- NOTE | 2023-10-30 08:33 | P.PN ---
Subjective This is a pleasant 83 years old female with past medical history of multiple medical problems including CVA/TIA about 10 years ago on warfarin, not sure if she has A-fib but she states she has history of rapid heartbeat and she takes beta-chauncey to control it. Also hypothyroidism and hypertension Patient states recently she had surgery in her lower back at [facility] on 09/21 at that time she received steroids till the day of discharge Now she presents because of persistent nausea, epigastric discomfort and burning of 10-day duration, rather than actual pain states that this burning is not relieved or precipitated by other factors and nonradiating It looks like this was preventing her from eating and drinking well for the last 10 days and she comes to the hospital because of this No bowel movement for the last 2 days because she is not eating well Other than that patient denies chest pain or dyspnea. No headache dizziness. No limb weakness or numbness. She works fine. No urinary complaint. She denies smoking alcohol or illicit drugs She takes warfarin for history of stroke 10 years ago but she is not sure if she has A-fib, see above Patient vitals stable and afebrile WBC 6.5 and hemoglobin 12, rest of CBC is unremarkable sodium slightly low 136, potassium 3.1 and creatinine 1.1 with baseline 0.8 10/29/2023 Patient is still symptomatic She still with epigastric pain nausea and poor appetite/oral intake On Phenergan as needed Surgery team consult for possible EGD CT of the abdomen is negative for acute process On IV Protonix INR therapeutic on warfarin for history of CVA On gentle hydration Objective - Vital Signs Vital signs: Vital Signs Temp 98.5 F 10/29/23 14:44 Pulse 78 10/29/23 14:44 Resp 17 10/29/23 14:44 BP 152/78 10/29/23 14:44 Pulse Ox 97 10/29/23 14:44 FiO2 Intake & Output 10/28/23 10/29/23 10/29/23 18:59 06:59 18:59 Intake Total 120 1065 Output Total 1 Balance 120 1064 Intake: Intake, IV Titration 825 Amount Sodium Chloride 0.9% 1, 825 000 ml @ 75 mls/hr IV . [id number] [facility] Rx#:[id number] Oral 120 240 Output: Urine 1 Other: # Voids 2 2 3 - Exam GENERAL: The patient is alert and oriented x3, not in any acute distress. Well developed, well nourished. HEENT: Pupils are round and equally reacting to light. EOMI. No scleral icterus. No conjunctival pallor. Normocephalic, atraumatic. No pharyngeal erythema. No thyromegaly. CARDIOVASCULAR: S1 and S2 present. No murmurs, rubs, or gallops. PULMONARY: Chest is clear to auscultation, no wheezing , no crackles. ABDOMEN: Soft, nontender, nondistended, normoactive bowel sounds. No palpable organomegaly. MUSCULOSKELETAL: No joint swelling or deformity. EXTREMITIES: No cyanosis, clubbing, or pedal edema. NEUROLOGICAL: Gross neurological examination did not reveal any focal deficits. SKIN: No rashes. no petechiae. - Labs CBC & Chem 7: 10/29/23 02:53 10/29/23 05:52 Labs: Abnormal Lab Results - Last 24 Hours (Table) 10/29/23 10/29/23 10/29/23 Range/Units 01:11 02:53 02:53 RBC 3.42 L (3.80-5.40) m/uL Hgb 10.2 L (11.4-16.0) gm/dL Hct 31.5 L (34.0-46.0) % Plt Count 131 L (150-450) k/uL PT (10.0-12.5) sec INR (<1.2) Potassium 3.2 L 3.4 L (3.5-5.1) mmol/L Chloride 109 H (98-107) mmol/L Calcium 8.3 L (8.4-10.2) mg/dL 10/29/23 Range/Units 02:53 RBC (3.80-5.40) m/uL Hgb (11.4-16.0) gm/dL Hct (34.0-46.0) % Plt Count (150-450) k/uL PT 26.7 H (10.0-12.5) sec INR 2.7 H (<1.2) Potassium (3.5-5.1) mmol/L Chloride (98-107) mmol/L Calcium (8.4-10.2) mg/dL Assessment and Plan Assessment: Epigastric pain and discomfort suspicions for gastritis from recent steroid use Decreased appetite secondary to above, with poor oral intake Dehydration, mild Recent history of back surgery in the lower back, currently scar looks healed and closed. No kelly no open wound History of stroke 10 years ago on warfarin Hypothyroidism Hypertension Hypokalemia, replaced per protocol Plan: Continue with IV Protonix Continue with Pepcid MiraLAX added by surgery team CT of the abdomen reviewed Surgery team consult for possible EGD General surgery on the case Continue with liquid diet and advance as tolerated per surgery team Labs and medication were reviewed.. Continue same treatment. Continue with symptomatic treatment. Resume home medication. Monitor labs and vitals. DVT and GI prophylaxis. Further recommendations as per clinical course of the patient DVT prophylaxis: On warfarin GI Prophylaxis: Pepcid and Protonix Prognosis is guarded
[2023-10-30] MEDS ORDERED: PROPOFOL 10 MG/ML 20 ML VIAL IV ONE (10:24)
[2023-10-30] MEDS: LACTATED RINGERS 1,000 ML IV ONE ×2 (10:29→10:37)
--- NOTE | 2023-10-30 10:43 | P.PCN ---
Date of Procedure: 10/30/23 Description of Procedure: PREOPERATIVE DIAGNOSIS: Acute blood loss anemia Chronic anticoagulant use POSTOPERATIVE DIAGNOSIS: Diaphragmatic hiatal hernia Acute gastritis Acute gastric ulcer OPERATION: Esophagogastroduodenoscopy SURGEON: Lili Barakat MD ANESTHESIA: MAC. INDICATIONS: The patient is a 83-year-old female who presents with acute blood loss anemia. Benefits and risks of the procedure were described. Informed consent was obtained. DESCRIPTION: The patient was brought into the endoscopy suite and laid in the left lateral decubitus position. An Olympus gastroscope was passed along the posterior oropharynx down to the distal esophagus where the squamocolumnar junction was encountered at 35 cm from the incisors. The stomach was entered and no bile reflux was found. Additional findings are listed below. The first through third portion of the duodenum was examined and unremarkable. Retroflexion of the scope confirmed Hill grade 2 lower esophageal valve. The squamocolumnar junction demonstrated LA grade B erosive esophagitis. The stomach was desufflated. The patient tolerated the procedure well. FINDINGS: Squamocolumnar junction 35 cm from the incisors. Diaphragmatic hiatus at 38 cm. Hiatal hernia, 3 cm Hill grade 3 lower esophageal valve. LA grade B erosive esophagitis. No active duodenitis. Acute gastritis Acute gastric ulcers without active bleeding RECOMMENDATIONS: 1. Recommend ground diet due to hiatal hernia 2. Recommend warm beverages
[2023-10-30 14:36] VITALS: BP 141/73; PULSE 98; RESP 16; TEMP 97.7
[2023-10-30] MEDS: LACTULOSE 20 GM/30 ML CUP PO SCH (17:13)
--- NOTE | 2023-11-04 12:17 | P.DS ---
Providers Date of admission: 10/28/23 03:28 Expected date of discharge: 10/30/23 Attending physician: Wale Woodson MD Consults: 10/28/23 03:27 Consult Physician Routine Consulting Provider: Lili Barakat Consult Reason/Comments: abdominal pain Do you want consulting provider notified?: Yes Primary care physician: Jay De La Cruz Hospital Course: Final diagnosis Epigastric pain and discomfort suspicions for gastritis from recent steroid use, status post EGD showing acute gastritis and ulcer with no active bleeding and hiatal hernia Decreased appetite secondary to above, with poor oral intake Dehydration, mild Recent history of back surgery in the lower back, currently scar looks healed and closed. No kelly no open wound History of stroke 10 years ago on warfarin Hypothyroidism Hypertension Hypokalemia, replaced per protocol GI prophylaxis DVT prophylaxis Full code Discharge disposition Patient is being discharged in a stable condition with guarded prognosis to home. Patient will follow-up with Dr. De La Cruz in the outpatient setting upon discharge. Patient is to continue with current medications and outpatient follow-up with general surgery as scheduled. Total time taken is greater than 35 minutes. Hospital course This is a 83-year-old female who was recently admitted with abdominal pain being followed with general surgery status post EGD showing gastritis and old ulcer with no bleeding noted. Patient has also been instructed to follow-up general surgery outpatient and continue on ground diet with warm foods. Patient reports to feeling somewhat improved and would like to go home. Recommend outpatient follow-up with primary care provider as well. Please refer to other consultation notes for further HPI. Currently no reports of chest pain, shortness of breath, or palpitations. Patient is afebrile. No reports of nausea or vomiting and patient is tolerating diet. Patient will be discharged home today. Guarded prognosis and high risk for readmissions given patient's significant comorbidities. Physical exam: Gen: This is a 83-year-old female who is awake, alert and oriented x 3, well- nourished, elderly appearing HEENT: Head is atraumatic, normocephalic. Pupils equal, round. Sclerae is anicteric. NECK: Supple. No JVD. No lymphadenopathy. No thyromegaly. LUNGS: Clear to auscultation. No wheezes or rhonchi. No intercostal retractions. HEART: Regular rate and rhythm. No murmur. ABDOMEN: Soft. Obese. Bowel sounds are present. No masses. No tenderness. EXTREMITIES: No pedal edema. No calf tenderness. NEUROLOGICAL: Patient is awake, alert and oriented x3. Cranial nerves 2 through 12 are grossly intact. Please refer to medication reconciliation sheet for a list of medications. The impression and plan of care has been dictated by Veronika García, Nurse Practitioner as directed. Dr. Deepa MD I have performed a history and examination and MDM of this patient, discussed the same with the dictator, and agree with the dictator's assessment and plan as written ,documented as a scribe. Based on total visit time, I have performed more than 50% of the visit. Patient Condition at Discharge: Fair Plan - Discharge Summary New Discharge Prescriptions: New Mag Hydrox/Al Hydrox/Simeth [Maalox] 20 ml PO BID #240 ml Metoprolol Succinate (ER) [Toprol XL] 25 mg PO DAILY #30 tab Lactulose [Cephulac] 20 gm PO BID PRN #240 ml PRN Reason: Constipation Promethazine [Phenergan] 12.5 mg PO Q6HR PRN #20 tab PRN Reason: Nausea And Vomiting Pantoprazole [Protonix] 40 mg PO DAILY #30 tab Acetaminophen Tab [Tylenol] 650 mg PO Q6HR PRN tab PRN Reason: Mild Pain Or Fever > 100.5 Continue Montelukast [Singulair] 10 mg PO HS Levothyroxine Sodium [Synthroid] 25 mcg PO DAILY Aspirin 81 mg PO DAILY Losartan Potassium 100 mg PO DAILY Atorvastatin [Lipitor] 40 mg PO HS Warfarin Sodium 4 mg PO W/SUPPER Discontinued Flecainide [Tambocor] 50 mg PO HS Metoprolol Succinate (ER) [Toprol Xl] 25 mg PO HS Discharge Medication List Aspirin 81 mg PO DAILY 01/27/14 [History] Levothyroxine Sodium [Synthroid] 25 mcg PO DAILY 01/27/14 [History] Montelukast [Singulair] 10 mg PO HS 01/27/14 [History] Atorvastatin [Lipitor] 40 mg PO HS 10/28/23 [History] Losartan Potassium 100 mg PO DAILY 10/28/23 [History] Warfarin Sodium 4 mg PO W/SUPPER 10/28/23 [History] Acetaminophen Tab [Tylenol] 650 mg PO Q6HR PRN tab 10/30/23 [Rx] Lactulose [Cephulac] 20 gm PO BID PRN #240 ml 10/30/23 [Rx] Mag Hydrox/Al Hydrox/Simeth [Maalox] 20 ml PO BID #240 ml 10/30/23 [Rx] Metoprolol Succinate (ER) [Toprol XL] 25 mg PO DAILY #30 tab 10/30/23 [Rx] Pantoprazole [Protonix] 40 mg PO DAILY #30 tab 10/30/23 [Rx] Promethazine [Phenergan] 12.5 mg PO Q6HR PRN #20 tab 10/30/23 [Rx] Follow up Appointment(s)/Referral(s): Jay De La Cruz MD [Primary Care Provider] - 1-2 days Lili Barakat MD [STAFF PHYSICIAN] - 1 Week (office will call patient with appointment ) Patient Instructions/Handouts: Peptic Ulcer (DC), Hiatal Hernia (DC), Gastritis (DC) Activity/Diet/Wound Care/Special Instructions: Activity limited until follow-up Follow-up with primary care provider Follow-up with cardiology outpatient Follow-up with general surgery outpatient and continue holding aspirin until follow-up Continue with dysphagia ground diet and warm foods with small slow frequent meals Continue holding flecainide and lisinopril until follow-up Discharge Disposition: HOME SELF-CARE
== END 2023-10-30 17:22 | disposition home or self-care (01) | DRG 378 ==
LOC: EC 22:39 → 6NMEDSUR 10-28 03:27 → OBSVTOIN 10-28 03:28 → 6NMEDSUR 10-28 03:42
PROVIDERS: ADMIT Internal Medicine; ATTEND Internal Medicine
PROC: 0DJ08ZZ Inspection of Upper Intestinal Tract, Via Natural or Artificial Opening Endoscopic (ICD-10-PCS; principal; 2023-10-30 08:30)
DX: K25.4 Chronic or unspecified gastric ulcer with hemorrhage (principal); D62 Acute posthemorrhagic anemia; I48.20 Chronic atrial fibrillation, unspecified; K22.11 Ulcer of esophagus with bleeding; I10 Essential (primary) hypertension; K44.9 Diaphragmatic hernia without obstruction or gangrene; Z79.01 Long term (current) use of anticoagulants; E87.6 Hypokalemia; E03.9 Hypothyroidism, unspecified; Z79.82 Long term (current) use of aspirin; Z79.890 Hormone replacement therapy; Z79.899 Other long term (current) drug therapy; Z86.73 Personal history of transient ischemic attack (TIA), and cerebral infarction without residual deficits; Z90.10 Acquired absence of unspecified breast and nipple
CPT/HCPCS: 36415; 43235; 74018; 74177; 80048; 80053; 81001; 82150; 83690; 83735; 84132; 84484; 85025; 85610; 93005; 96361; 96374; 96375; 99285

== ENCOUNTER → 2024-07-17 | Outpatient (CLI) | payer MEDICARE ==
[2024-07-17 11:05] LABS: HCT 40.7 % (37.2-46.3); HGB 13.4 g/dL (12.0-15.0); MCH 29.2 pg (27.0-32.0); MCHC 32.9 g/dL (32.0-37.0); MCV 88.7 FL (80.0-97.0); NRBC Per 100 WBC 0 X 10*3/uL (0.00-0.01); Platelet Count 159 X 10*3/uL (140-440); RBC 4.59 X 10*6/uL (4.10-5.20); RDW 13.1 % (11.5-14.5); WBC 5.25 X 10*3/uL (4.50-10.00)
[2024-07-17 11:33] LABS: NT-Pro-B-Type Natriuretic Pept 144 pg/mL (0-450)
[2024-07-17 11:41] LABS: ALT 17 U/L (8-44); AST 21 U/L (13-35); Albumin 4.3 g/dL (3.8-4.9); Albumin/Globulin Ratio 2.05 Ratio (1.60-3.17); Alkaline Phosphatase 73 U/L (41-126); Blood Urea Nitrogen 25.1 mg/dL (9.0-27.0); Calcium 8.9 mg/dL (8.7-10.3); Carbon Dioxide 21.6 mmol/L (21.6-31.8); Chloride 106 mmol/L (96-109); Globulin 2.1 g/dL (1.6-3.3); Glucose 101 mg/dL (70-110); LDL Cholesterol,Calculated 86.4 mg/dL (0.0-131.0); Potassium 4.5 mmol/L (3.5-5.5); Sodium 138 mmol/L (135-145); Total Bilirubin 0.7 mg/dL (0.3-1.2); Total Protein 6.4 g/dL (6.2-8.2)
== END | disposition home or self-care (01) ==
LOC: LABWHC1 08:01
PROVIDERS: ATTEND Psychiatry & Neurology Psychiatry
DX: Z13.6 Encounter for screening for cardiovascular disorders (principal); I50.9 Heart failure, unspecified; D72.9 Disorder of white blood cells, unspecified; E11.9 Type 2 diabetes mellitus without complications; E78.5 Hyperlipidemia, unspecified; E03.9 Hypothyroidism, unspecified; R79.89 Other specified abnormal findings of blood chemistry
CPT/HCPCS: 36415; 80053; 80061; 83036; 83880; 84443; 85027